=== PATIENT | male | born 1965 | race Caucasian/White ===

== ENCOUNTER 2017-01-26 11:12 | Emergency (ER) | payer SELFPAY ==
[~2017-01-26] VITALS: Ht 162.6 cm; Wt 25.5 kg
[2017-01-26 11:17] VITALS: Ht 162.6 cm; Wt 25.5 kg
== END 2017-01-26 14:15 | disposition left against medical advice (07) ==
LOC: FTE 11:12
DX: Z53.21 Procedure and treatment not carried out due to patient leaving prior to being seen by health care provider (principal)